=== PATIENT | female | born 1970 | race African-American/Black ===

== ENCOUNTER 2016-08-24 18:18 | Emergency (ER) | payer OTHER ==
[~2016-08-24 18:18] MED LIST: FLUVOXAMINE MAL25 MG PO; LAMOTRIGINE200 MG PO; ZIPRASIDONE HCL20 M1 PO; ZOVIA
== END 2016-08-24 19:29 | disposition home or self-care (01) ==
LOC: SED 18:18
DX: S61.412A Laceration without foreign body of left hand, initial encounter (principal); F32.9 Major depressive disorder, single episode, unspecified; X58.XXXA Exposure to other specified factors, initial encounter; Y92.009 Unspecified place in unspecified non-institutional (private) residence as the place of occurrence of the external cause
CPT/HCPCS: 12001; 99283